=== PATIENT | male | born 1995 | race Caucasian/White ===

== ENCOUNTER 2016-10-11 12:46 | Emergency (ER) | payer BC, OTHER ==
[~2016-10-11] VITALS: Ht 175.3 cm; Wt 108.3 kg
[~2016-10-11 12:46] MED LIST: TYLE3 PO; Z.0.NO CURRENT MEDS
[2016-10-11 12:55] VITALS: BP 139/83; PULSE 68; RESP 16; TEMP 97.8; O2SAT 97
[2016-10-11] MEDS ORDERED: LIDOCAINE VISCOUS 2% SOLN 15 ML UDC PO ONE (13:15)
[2016-10-11] MEDS ORDERED: ALUMINUM/MAGNESIUM/SIMETH 30 ML CUP PO ONE (13:15)
--- NOTE | 2016-10-11 13:21 | PD ---
HPI Chief Complaint: Chest Pain Time Seen by Provider: 13:04 Travel History International Travel<30 days: No Contact w/Intl Traveler<30days: No Traveled to known affect area: No History of Present Illness HPI The patient is a 21-year-old male who presents to the emergency department for substernal chest pain of one year's duration. The patient notes an intermittent history of substernal chest pain which he describes as burning, nonradiating, worse with lying supine at night, and occasionally as a "warm feeling ". The patient states his symptoms occur at night when lying supine, are improved when he stands up for certain amount of time, and not improved with Zantac are Nexium and [id number]. The patient was seen by his primary physician who advised him he had GERD, however, the patient continues to have symptoms. The patient denies any previous history of known gastritis or endoscopy. The patient denies any history of hyperlipidemia, diabetes, tobacco use, or CAD. He does have a history of questionable borderline hypertension, but is never been placed on medications. He denies any exertional symptoms. He denies any current nausea, vomiting, or abdominal pain. PFSH Past Medical History Medical History: Denies Significant Hx Diminished Hearing: No Immunizations Current: Yes Tetanus Vaccination: < 5 Years Influenza Vaccination: No ?: Not Past Surgical History Abdominal Surgery: Yes (leslye hernia) Other Surgery: Yes (RIGHT HAND SURGERY, leslye thumb) Social History Alcohol Use: Yes (occ) Tobacco Use: No Substance Use: No Allergies-Medications (Allergen,Severity, Reaction): Coded Allergies: No Known Allergies (Verified , 10/11/16) Reported Meds & Prescriptions Reported Meds & Active Scripts Active Review of Systems Except as stated in HPI: all other systems reviewed are Neg General / Constitutional: Positive: Other (warm feeling over the chest with symptoms are present), No: Fever HENT: No: Lightheadedness Cardiovascular: Positive: Chest Pain or Discomfort Respiratory: No: Shortness of Breath Gastrointestinal: Positive: Indigestion, No: Nausea, Vomiting, Abdominal Pain Skin: No Rash Physical Exam Narrative GENERAL: Awake, alert, nontoxic-appearing 21-year-old male who appears his stated age and is in no acute respiratory distress. SKIN: Focused skin assessment warm/dry. HEAD: Atraumatic. Normocephalic. EYES: No injection or drainage. ENT: No nasal bleeding or discharge. Mucous membranes pink and moist. NECK: Trachea midline. No JVD. CARDIOVASCULAR: Regular rate and rhythm. No murmur appreciated. RESPIRATORY: No accessory muscle use. Clear to auscultation. Breath sounds equal bilaterally. GASTROINTESTINAL: Abdomen soft, non-tender, nondistended. No epigastric tenderness. Negative McBurney's. Negative Retana's. MUSCULOSKELETAL: No obvious deformities. No clubbing. No cyanosis. No edema. NEUROLOGICAL: Awake and alert. No obvious cranial nerve deficits. Motor grossly within normal limits. Normal speech. PSYCHIATRIC: Appropriate mood and affect; insight and judgment normal. Data Data Last Documented VS Vital Signs Date Time Temp Pulse Resp B/P Pulse Ox O2 Delivery O2 Flow Rate FiO2 10/11/16 12:55 97.8 68 16 139/83 97 Orders Chest, Single Ap (10/11/16 13:14) Al-Mag Hy-Si 40-40-4 Mg/Ml Liq (Mag-Al P (10/11/16 13:15) Lidocaine 2% Viscous (Xylocaine 2% Visco (10/11/16 13:15) MDM Medical Decision Making Medical Screen Exam Complete: Yes Emergency Medical Condition: Yes Medical Record Reviewed: Yes Interpretation(s) EKG reveals sinus arrhythmia with inverted T-wave in lead 3. Most likely respiratory variant. No evidence of pericarditis. Chest x-ray reveals no acute cardiopulmonary abnormality is identified. Differential Diagnosis Differential diagnosis includes GERD, esophageal spasm, gastritis, hiatal hernia , cardiomyopathy, neuropathy. Narrative Course EKG was ordered and interpreted. Chest x-ray was obtained to evaluate for hiatal hernia. The patient was administered a GI cocktail. EKG reveals sinus arrhythmia, most likely respiratory variant. No evidence of pericarditis. Chest x-rays unremarkable, no evidence of hiatal hernia. Patient is not tachycardic or hypoxic, doubt pulmonary embolism. I had a discussion with the patient and his mother regarding possibilities including GERD, esophagitis, cardiomyopathy. I advised the family to follow-up with gastrology for possible outpatient EGD, if unremarkable, patient may benefit from echocardiogram with his primary physician. The patient will be placed on Protonix. Diagnosis Primary Impression: GERD (gastroesophageal reflux disease) Qualified Code: K21.9 - Gastroesophageal reflux disease, esophagitis presence not specified Patient Instructions: General Instructions Additional Instructions: Protonix as directed. Avoid lying down for one hour after eating. Avoid peppermint, Spearmint, nicotine, and alcohol. Follow-up with gastroenterology, you may benefit from outpatient endoscopy. Please provide the patient a copy of their EKG and chest x-ray results at discharge. Med/Other Pt SpecificInfo: Prescription(s) given Scripts Pantoprazole (Protonix)40 Mg Tab40 Mg PO DAILY #30 TAB Ref 0 Prov:Rivera Valdez MD 10/11/16 Disposition: 01 DISCHARGE HOME Condition: Stable Rivera Valdez MD Oct 11, 2016 13:21
--- NOTE | 2016-10-11 13:33 | RADHPO ---
EXAM DATE/TIME: 10/11/2016 13:20 [facility] COMPARISON: No previous studies available for comparison. INDICATIONS : Chest pain and pressure for 1 year. Recent increase in pressure last 5 days. MEDICAL HISTORY : None. SURGICAL HISTORY : None. ENCOUNTER: Initial ACUITY: 4 - 6 days PAIN SCORE: 4/10 LOCATION: Bilateral chest FINDINGS: Portable AP view of the chest demonstrates a normal-sized cardiac silhouette. No effusion, consolidat ion, or pneumothorax is visualized. The bones and soft tissues demonstrate no acute abnormality. CONCLUSION: No acute cardiopulmonary abnormality is identified. Mayo Villarreal MD on October 11, 2016 at 13:31 Board Certified Radiologist. This report was verified electronically.
[2016-10-11] MEDS ORDERED: PROT40TA PO (13:38)
--- NOTE | 2016-10-12 17:31 | EKG ---
Date Performed: 10/11/2016 Time Performed: 13:01:44 PTAGE: 21 years EKG: Sinus arrhythmia Normal ECG NO PREVIOUS TRACING DOCTOR: Morris Bishop Interpretating Date/Time 10/12/2016 17:28:54
== END 2016-10-11 13:59 | disposition home or self-care (01) ==
LOC: PHED 12:46
DX: K21.9 Gastro-esophageal reflux disease without esophagitis (principal); I49.8 Other specified cardiac arrhythmias
CPT/HCPCS: 71010; 93005; 99284